=== PATIENT | male | born 1985 | race Caucasian/White ===

== ENCOUNTER 2019-10-16 07:34 | Emergency (ER) | payer OTHER ==
[~2019-10-16] VITALS: Ht 182.9 cm; Wt 104.5 kg
[2019-10-16 07:59] VITALS: BP 102/59
[2019-10-16] MEDS ORDERED: CYCL-331 PO (08:40)
[2019-10-16] MEDS ORDERED: HYDR-3165 PO (08:40)
--- NOTE | 2019-10-16 08:40 | PHYS DOC ---
Past History Past Medical History: No Pertinent History Past Surgical History: Cholecystectomy Alcohol Use: None General Adult EDM: Chief Complaint: BACK INJURY HPI: HPI: 34-year-old male presents with lower back pain worse on the left than the right. Patient was lifting a lawnmower out of a truck yesterday. As he got to the ground he had to reach out with it further than he had planned. He felt a pain in the left side shortly afterward. This pain has increased in intensity. He has some radiation down the posterior of the left leg to the knee. He has had low back strains in the past, but no significant injury. No history of back surgeries. No loss of bowel or bladder. He has no other complaints this time. Review of Systems: Review of Systems: Constitutional: Denies fever or chills Eyes: Denies change in visual acuity HENT: Denies nasal congestion or sore throat Respiratory: Denies cough or shortness of breath Cardiovascular: Denies chest pain or edema GI: Denies abdominal pain, nausea, vomiting, bloody stools or diarrhea : Denies dysuria Musculoskeletal: Low back pain Integument: Denies rash Neurologic: Denies headache, focal weakness or sensory changes Endocrine: Denies polyuria or polydipsia Lymphatic: Denies swollen glands Psychiatric: Denies depression or anxiety Heart Score: Risk Factors: Risk Factors: DM, Current or recent (<one month) smoker, HTN, HLP, family history of CAD, obesity. Risk Scores: Score 0 - 3: 2.5% MACE over next 6 weeks - Discharge Home Score 4 - 6: 20.3% MACE over next 6 weeks - Admit for Clinical Observation Score 7 - 10: 72.7% MACE over next 6 weeks - Early Invasive Strategies Allergies: Allergies: Allergies Coded Allergies Type Severity Reaction Last Updated Verified No Known Drug Allergies 10/16/19 No Physical Exam: PE: Constitutional: Well developed, well nourished, no acute distress, non-toxic appearance. [] HENT: Normocephalic, atraumatic, bilateral external ears normal, oropharynx moist, no oral exudates, nose normal. [] Eyes: PERRLA, EOMI, conjunctiva normal, no discharge. [] Neck: Normal range of motion, no tenderness, supple, no stridor. [] Cardiovascular:Heart rate regular rhythm, no murmur [] Lungs & Thorax: Bilateral breath sounds clear to auscultation [] Abdomen: Bowel sounds normal, soft, no tenderness, no masses, no pulsatile masses. [] Skin: Warm, dry, no erythema, no rash. [] Back: Lumbar paraspinal muscle spasm. Tenderness over left sacroiliac joint [] Extremities: No tenderness, no cyanosis, no clubbing, ROM intact, no edema. [] Neurologic: Alert and oriented X 3, normal motor function, normal sensory function, no focal deficits noted. [] Psychologic: Affect normal, judgement normal, mood normal. [] Current Patient Data: Vital Signs: Vital Signs Date Time Temp Pulse Resp B/P (MAP) Pulse Ox O2 Delivery O2 Flow Rate FiO2 10/16/19 07:59 98.0 81 18 102/59 (73) 96 EKG: EKG: [] Radiology/Procedures: Radiology/Procedures: [] Course & Med Decision Making: Course & Med Decision Making Pertinent Labs and Imaging studies reviewed. (See chart for details) The patient appears to have a strain of the left sacroiliac joint. I will place him on 600 of ibuprofen 3 times a day, Flexeril 3 times a day. This should improve. I have also given him exercise instructions and his discharge. He is stable for discharge at this time. [] [place] Disclaimer: [place] Disclaimer: This electronic medical record was generated, in whole or in part, using a voice recognition dictation system. Departure Departure: Impression: Primary Impression: Sacroiliac joint dysfunction of left side Disposition: HOME/RESIDENCE PRIOR TO ADM Condition: STABLE Referrals: PCP,NO (PCP) Patient Instructions: Sacroiliac Joint Dysfunction Scripts Hydrocodone Bit/Acetaminophen (NORCO 5-325 TABLET) 1 Each Tablet 1 TAB PO PRN Q6HRS PRN for PAIN, #10 TAB 0 Refills Prov: YAMILETH LUNA DO 10/16/19 Cyclobenzaprine Hcl (CYCLOBENZAPRINE HCL) 10 Mg Tablet 1 TAB PO TID PRN for MUSCLE SPASMS, #30 TAB Prov: YAMILETH LUNA DO 10/16/19 Justification of Admission: Justification of Admission: Justification of Admission Dx: N/A YAMILETH LUNA DO Oct 16, 2019 08:40
== END 2019-10-16 09:02 | disposition home or self-care (01) ==
LOC: ER 07:34
DX: M53.3 Sacrococcygeal disorders, not elsewhere classified (principal); Z90.49 Acquired absence of other specified parts of digestive tract
CPT/HCPCS: 99283